=== PATIENT | male | born 1930 | race Caucasian/White ===

== ENCOUNTER 2017-12-18 20:38 | Inpatient (IN) | payer OTHER ==
[~2017-12-18] VITALS: Ht 170.2 cm; Wt 158.5 kg
[~2017-12-18 20:38] MED LIST: AMLODIPINE BESYL5 M1 PO; APPLE CIDER VI1 EACH PO; APPLE CIDER VI500 MG PO; ATORVASTATIN CA10 M1 PO; BIOTIN5 M1 PO; CO Q-1050 M1 PO; DAILY VALUE1 EACH PO; FINASTERIDE5 M1 PO; MAGNESIUM400 M1 PO; NONI PO; PAZEO2.5 ML OP; POTASSIUM GLUC500 M1 PO; PRIMIDONE50 M1 PO; PROPRANOLOL HCL80 M2; SUPER BETA PROSTATE PO; TAMSULOSIN HCL0.4 M1 PO; TART CHERRY CA1 EACH PO; VITAMIN B COMP1 EACH PO; VITAMIN B-121000 MC3 PO; VITAMIN C500 M6 PO
--- NOTE | 2017-12-18 20:58 | ED MVC/FALL/TRAUMA COMPLAINT ---
History of Present Illness General Chief Complaint: Fall Stated Complaint: S/P FALL IN BATHROOM, LEGS GAVE OUT Source: patient, EMS Exam Limitations: no limitations Vital Signs & Intake/Output Vital Signs & Intake/Output Vital Signs Date Time Temp Pulse Resp B/P B/P Pulse O2 O2 Flow FiO2 Mean Ox Delivery Rate 12/19 0031 98.9 87 20 148/65 97 Nasal 2.0L Cannula 12/19 0004 89 Room Air 12/185 95 Nasal 2.0L Cannula 12/180 98.0 90 20 149/80 90 Room Air 12/18 2048 98.1 90 18 146/64 91 Room Air ED Intake and Output 12/19 0000 12/18 1200 Intake Total Output Total Balance Patient 375 lb Weight Weight Estimated Measurement Method Allergies Coded Allergies: doxazosin (From CARDURA) (RASH, PAIN 04/26/16) Reconcile Medications Amlodipine Besylate 5 MG TABLET 1 TAB PO DAILY BP (Reported) Ascorbate Calcium (Vitamin C) (Unknown Strength) TABLET (Unknown Dose) PO DAILY SUPPLEMENT (Reported) Atorvastatin Calcium 10 MG TABLET 1 TAB PO DAILY CHOLESTEROL (Reported) Biotin (Unknown Strength) CAPSULE (Unknown Dose) PO DAILY SUPPLEMENT ( Reported) C/Sourcherry/Celery/Grape Seed (Tart [place] Capsule) 1 EACH CAPSULE 1 CAP PO DAILY SUPPLEMENT (Reported) Chrm/Cider/Dr Bt-Org Peel/Gr T (Apple Cider Vinegar Plus Tb) 1 EACH TABLET 1 TAB PO DAILY SUPPLEMENT (Reported) Cider Vinegar (Apple Cider Vinegar) (Unknown Strength) TABLET (Unknown Dose) PO DAILY SUPPLEMENT (Reported) Cyanocobalamin (Vitamin B-12) (Unknown Strength) TABLET (Unknown Dose) PO DAILY SUPPLEMENT (Reported) Finasteride 5 MG TABLET 1 TAB PO DAILY PROSTATE (Reported) Magnesium Oxide (Magnesium) (Unknown Strength) CAPSULE (Unknown Dose) PO DAILY SUPPLEMENT (Reported) Multivitamin (Multi-Day Vitamins) 1 EACH TABLET 1 TAB PO DAILY SUPPLEMENT ( Reported) [ARTHUR] 1 CAP PO DAILY SUPPLEMENT (Reported) Olopatadine HCl (Pazeo) 2.5 ML DROPS 1 DROP OP DAILY BOTH EYES (Reported) Potassium Gluconate (Potassium) (Unknown Strength) TABLET (Unknown Dose) PO DAILY SUPPLEMENT (Reported) Primidone 50 MG TABLET 0.5 TAB PO DAILY TREMORS (Reported) Propranolol HCl (Propranolol HCl ER) (Unknown Strength) CAP.SA.24H (Unknown Dose) UNKNOWN (Reported) [SUPER BETA PROSTATE] 3 CAP PO DAILY SUPPLEMENT (Reported) Tamsulosin HCl 0.4 MG CAP.ER.24H 1 CAP PO DAILY PROSTATE (Reported) Ubidecarenone (Co Q-10) 50 MG CAPSULE 2 CAP PO DAILY SUPPLEMENT (Reported) Vitamin B Complex 1 EACH CAPSULE 1 CAP PO DAILY SUPPLEMENT (Reported) Triage Note: RECEIVED 87 YO MALE DEMETRA FROM HOME S/P FALL IN BATHROOM. ACCORDING TO REPORT, PT WAS IN THE BATHROOM AND LEFT LEG GAVE OUT, CAUSING HIM TO FALL ON HIS BUTT. PT DENIES ACUTE PAIN OR INJURY. TEMP IN AMBULANCE 100.4, TEMP IN TRIAGE 98.1. Triage Nurses Notes Reviewed? yes Onset: Gradual Duration: day(s): Timing: recent history Severity: mild Injuries/Fall Location: "My bottom hurts" Method of Injury: fall Loss of Consciousness: no loss of consciousness Modifying Factors: Improves With: rest. Associated Symptoms: "I'm just weak all over" HPI: 87 yo gentleman presents after a fall in his bathroom. He shares that he was walking to the bathroom and fell. He landed on his "back end". He may have hit his head. He notes no pain. He fell yesterday and notes that he feels unsteady. Per the family, he has been hallucinating. Past History Travel History Traveled to [place] past 21 day No Medical History Any Pertinent Medical History? see below for history Neurological: NONE EENT: NONE Cardiovascular: PVD, HIGH CHOLESTEROL Respiratory: NONE Gastrointestinal: NONE Hepatic: NONE Renal: NONE, benign prost hyperplasia Musculoskeletal: NONE Psychiatric: NONE Endocrine: NONE Blood Disorders: NONE Cancer(s): NONE TEST DIRECTOR/Reproductive: NONE Surgical History Surgical History: B/L knee replacement Psychosocial History Who do you live with Spouse What is your primary language Georgian Tobacco Use: Quit >30 days ago Family History Hx Contributory? No Review of Systems Review of Systems Constitutional: Reports: no symptoms. Eyes: Reports: no symptoms. Ears, Nose, Throat, Mouth: Reports: no symptoms. Respiratory: Reports: no symptoms. Cardiovascular: Reports: no symptoms. Gastrointestinal/Abdominal: Reports: no symptoms. Genitourinary: Reports: no symptoms. Musculoskeletal: Reports: no symptoms. Skin: Reports: no symptoms. Neurological/Psychological: Reports: no symptoms. All Other Systems: Reviewed and Negative Physical Exam Physical Exam General Appearance: well developed/nourished, mild distress Head: atraumatic, normal appearance Eyes: Bilateral: normal appearance. Ears, Nose, Throat, Mouth: hearing grossly normal, moist mucous membrane Neck: normal inspection, supple, full range of motion Respiratory: normal breath sounds, chest non-tender, no respiratory distress, quiet respiration, lungs clear Cardiovascular: regular rate/rhythm Gastrointestinal: normal bowel sounds, soft, non-tender, obese Back: normal inspection Extremities: chronic venous stasis changes. , 3-4 edema in lower extremities. 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 No CVA/TIA Diagnosis No Sepsis Present: No Sepsis Focused Exam Completed? No Progress Differential Diagnosis: fall, fx, electrolyte abnormality vs other. Plan of Care: Orders Procedure Date/time Status Nothing by Mouth 12/19 B Active Patient Data 12/19 1644 Active Weight 12/19 0329 Active Vital Signs 12/19 032 Active Teach/Educate 12/19 328 Active Pain Treatment and Response 12/19 032 Active Nutritional Intake, Monitor 12/19 032 Active Isolation 12/19 032 Active Intake & Output 12/19 032 Active Patient Care Conference 12/19 0329 Active Activity/Ambulation 12/19 0329 Active Saline Lock 12/19 0235 Active Misc Message 12/19 0235 Active ED Holding Orders 12/19 0235 Active Admit to inpatient 12/19 0235 Active Vital Signs 12/19 0235 Active Code Status 12/19 0235 Active Intake & Output 12/19 0004 Active Add-on Test (ER Only) 12/18 231 Active Add-on Test (ER Only) 12/18 231 Active D-DIMER 12/18 2109 Complete URINALYSIS 12/18 2057 Complete TROPONIN LEVEL 12/18 2057 Complete LIPASE 12/18 2057 Complete HEPATIC FUNCTION PANEL 12/18 2057 Complete CBC WITHOUT DIFFERENTIAL 12/18 2057 Complete BASIC METABOLIC PANEL 12/18 2057 Complete AMYLASE 12/18 2057 Complete EKG 12/18 2057 Active Laboratory Tests 12/18/17 2352: Urine Color YEL, Urine Clarity CLEAR, Urine pH 6.0, Ur Specific [place] 1.025, Urine Protein NEG, Urine Ketones NEG, Urine Nitrite NEG, Urine Bilirubin NEG, Urine Urobilinogen 0.2, Ur Leukocyte Esterase NEG, Ur Microscopic EXAM NOT REQUIRED, Urine Hemoglobin NEG, Urine Glucose NEG 12/18/172112: Anion Gap 7, Estimated GFR > 60, BUN/Creatinine Ratio 23.3, Glucose 134 H, Calcium 10.0, Total Bilirubin 0.7, Direct Bilirubin 0.2, AST 22, ALT 25, Alkaline Phosphatase 66, Troponin I < 0.01, Total Protein 6.5, Albumin 3.4 L, Amylase 75, Lipase 158, CBC w Diff NO MAN DIFF REQ, RBC 4.14 L, MCV 89.3, MCH 28.6, MCHC 32.0 L, RDW 16.7 H, MPV 7.6, Gran % 70.8, Lymphocytes % 14.8 L, Monocytes % 11.7 H, Eosinophils % 2.3, Basophils % 0.4, Absolute Granulocytes 7.6 H, Absolute Lymphocytes 1.6, Absolute Monocytes 1.3 H, Absolute Eosinophils 0.2, Absolute Basophils 0 12/18/172109: D-Dimer High Sensitivty 597 H Diagnostic Imaging: Viewed by Me: CT Scan. Discussed w/RAD: CT Scan. Radiology Impression: PATIENT: DASHA DON PRESENT AGE: 87 PATIENT ACCOUNT NO: [id number] : 32 LOCATION: [facility] ORDERING PHYSICIAN: Allen Mcarthur MD SERVICE DATE: 12/18/17 EXAM TYPE: CAT - CT CERV SPINE WO IV CONTRAST; CT HEAD WO IV CONTRAST EXAMINATIONS: CT HEAD WITHOUT CONTRAST AND CT CERVICAL SPINE WITHOUT CONTRAST CLINICAL INFORMATION: Trauma, fall COMPARISON: None. TECHNIQUE: Contiguous helical images of the brain were obtained without IV contrast. Contiguous helical images of the cervical spine were obtained without IV contrast. Multiplanar reconstructions were performed. DLP: 1300 mGy-cm FINDINGS: Study is limited by patient motion. Repeat scans obtained. Evaluation of the inferior cranium is specifically very limited. There are no pathologic extra-axial fluid collections. The lateral, third, fourth ventricles are nondilated and concordant with the appearance of the sulci. There is no evidence for acute intraparenchymal hemorrhage or infarct within the visualized cranium. The cerebellar fossa and temporal lobes are not well evaluated secondary to significant patient motion. There is neither mass nor mass effect within the visualized tissues. There is no shift of midline structures. The paranasal sinuses and mastoid air cells are clear. There are no osseous lesions. There is no prevertebral soft tissue swelling. The intervertebral disc spaces of C2-C5 are maintained. There is mild retrolisthesis at the C4-C5 level measuring 1 mm. There is moderate loss of the normal intervertebral disc space at the C5-C6 level with prominent anterior osteophytes. Similar findings are identified at the C6-C7 level. In addition, there is anterolisthesis at this level measuring 3 mm. Diffuse facet arthropathy. Normal thyroid gland. The visualized lung apices are clear. IMPRESSION: 1. Nonvisualization of the posterior fossa and temporal lobes secondary to significant patient motion. Acute findings in this location cannot be excluded. 2. Within the visualized cranium, no acute intracranial hemorrhage. 3. No acute fracture of the cervical spine. 4. Moderately severe degenerative changes involving the C5-C7 levels. The adjacent and associated spondylolisthesis most likely relates to degenerative change as opposed to acute subluxation. DICTATED BY: Lo Worthy MD DATE/TIME DICTATED:12/18/172208 OPTICAL STORE MANAGER:JIMBO DATE/TIME TRANSCRIBED:12/18/172208 CONFIDENTIAL, DO NOT COPY WITHOUT APPROPRIATE AUTHORIZATION. <Electronically signed in Other Vendor System> SIGNED BY: Lo Worthy MD 12/18/172221, PATIENT: DASHA DON PRESENT AGE: 87 PATIENT ACCOUNT NO: [id number] : 32 LOCATION: [facility] ORDERING PHYSICIAN: Allen Mcarthur MD SERVICE DATE: 12/18/17 EXAM TYPE: CAT - CT ABD & PELVIS W/O IV CONTRAS; CT CHEST WO IV CONTRAST EXAMINATION: CT CHEST, ABDOMEN AND PELVIS WITHOUT CONTRAST CLINICAL INFORMATION: Pain following trauma. Fall. COMPARISON: 04/26/2016. TECHNIQUE: Contiguous axial thin section helical images of the chest, abdomen and pelvis were performed without oral or IV contrast. The data set was reformatted in the coronal and sagittal planes and reviewed on an independent workstation. DLP: 2011 mGy-cm. FINDINGS: The heart is of normal size. There is no pericardial effusion. There is neither mediastinal, hilar nor axillary lymphadenopathy. There are no chest wall masses. Review of lung windows demonstrates that there are neither pleural effusions nor pneumothoraces. There are no consolidations. There is dependent atelectasis. There is a 7 mm nodular density within the right upper lobe on image 206/1088. This was not identified on the prior exam. The liver is of normal size and attenuation without focal lesions nor intrahepatic biliary ductal dilation. There is layering high attenuation within the gallbladder lumen. There is no wall thickening or discernible pericholecystic fluid. The spleen, pancreas, adrenal glands are unremarkable. Both kidneys are of normal size and attenuation without hydronephrosis or nephrolithiasis. There is an 8.2 cm exophytic cyst emanating from the upper pole of the left kidney. There is no abdominal free fluid. There is neither mesenteric nor retroperitoneal lymphadenopathy. There is sigmoid diverticulosis without evidence of diverticulitis; otherwise, unremarkable unopacified loops of small and large bowel are identified. There is no pelvic free fluid. The urinary bladder is unremarkable. There is neither pelvic nor inguinal lymphadenopathy. Bone windows: Neither sclerotic nor lytic bone lesions are identified. IMPRESSION: No evidence for acute traumatic injury to the thorax , abdomen or pelvis. No evidence for acute abdominal or pelvic inflammatory or infectious processes. Sigmoid diverticulosis without evidence of diverticulitis. Layering high attenuation within the gallbladder lumen, either b2b outside sales representative of high density bile or numerous calculi. No CT evidence for cholecystitis. 7 mm right upper lobe nodular density. Various management parameters for solitary pulmonary nodules are in the literature. According to the Fleischner Society, recommendations for pulmonary nodules are as follows: Nodule size < or = to 4 mm in LOW RISK PATIENTS: No follow up needed. Nodule size < or = to 4 mm in HIGH RISK PATIENTS: Follow up CT at 12 months; if unchanged, no further follow up. Nodule size > 4-6 mm in LOW RISK PATIENTS: Follow up CT at 12 months; if unchanged, no further follow up. Nodule size > 4-6 mm in HIGH RISK PATIENTS: Initial follow up CT at 6-12 months, then at 18-24 months if no change. Nodule size > 6-8 mm in LOW RISK PATIENTS: Initial follow up CT at 6-12 months, then at 18-24 months if no change. Nodule size > 6-8 mm in HIGH RISK PATIENTS: Initial follow up CT at 3-6 months, then 9-12 months and 24 months if no change. Nodule size > 8 mm in LOW RISK PATIENTS: Follow up CT at around 3, 9, and 24 months, dynamic contrast-enhanced CT, PET, and/or biopsy. Nodule size > 8 mm in HIGH RISK PATIENTS: Same as for low-risk patients. DICTATED BY: Kadeem Garcia MD DATE/TIME DICTATED:12/18/172216 OPTICAL STORE MANAGER:JIMBO DATE/TIME TRANSCRIBED:12/18/172216 CONFIDENTIAL, DO NOT COPY WITHOUT APPROPRIATE AUTHORIZATION. <Electronically signed in Other Vendor System> SIGNED BY: Kadeem Garcia MD 12/18/172228, PATIENT: DASHA DON PRESENT AGE: 87 PATIENT ACCOUNT NO: [id number] : 32 LOCATION: [facility] ORDERING PHYSICIAN: Allen Mcarthur MD SERVICE DATE: 12/18/17 EXAM TYPE: CAT - CTA CHEST-PULMONARY EMBOLISM EXAMINATION: CT ANGIOGRAM OF THE CHEST WITH AND WITHOUT CONTRAST (CT PULMONARY ANGIOGRAM FOR PE) CLINICAL INFORMATION: Dx: dyspnea, hypoxia COMPARISON: CT chest December 18, 2017. CTA chest April 26, 2016. TECHNIQUE: Prior to contrast administration, noncontrast localization images were obtained. Subsequently, multidetector volumetric imaging was performed from the thoracic inlet to below the diaphragms following the administration of 76 mL Optiray 320 intravenous contrast. No contrast reaction reported. Sagittal, coronal, and MIP oblique sagittal reformatted images were obtained on the CT workstation, uploaded to PACS, and reviewed. Total exam dose-length product 534.22 mGy-cm. FINDINGS: QUALITY OF STUDY/ CONTRAST BOLUS: Satisfactory PULMONARY ARTERIES: No central or segmental pulmonary emboli. THORACIC AORTA: No aneurysm or dissection. There are vascular wall calcifications of aortic arch. LUNG: No infiltrate. No acute change. The previously noted 7 mm nodule in the right lung is stable. PLEURA: There is no pleural effusion. There is no pneumothorax. Small pleural calcifications and nodular thickening along the right lateral chest wall stable. Stable focal nodular thickening of the major fissure in the left lung. MEDIASTINUM: Normal heart size. No pericardial effusion. No hilar or mediastinal lymphadenopathy. No evidence of septal bowing or right heart strain. CHEST WALL/AXILLA: No axillary or internal mammary lymphadenopathy. OSSEOUS STRUCTURES: Degenerative spondylosis of the dorsal spine with multilevel disc height narrowing and endplate spurring of the vertebrae. UPPER ABDOMEN: There are bilateral cysts at the upper pole of the kidneys. The left kidney has an 8 cm cyst. No reflux of contrast into the hepatic veins to suggest elevated right heart pressures. IMPRESSION: No acute abnormality the chest. No evidence of pulmonary embolism. VTE: negative DICTATED BY: Chase Schmitt MD DATE/TIME DICTATED:12/19/17103 OPTICAL STORE MANAGER:JIMBO DATE/TIME TRANSCRIBED:12/19/17103 CONFIDENTIAL, DO NOT COPY WITHOUT APPROPRIATE AUTHORIZATION. <Electronically signed in Other Vendor System> SIGNED BY: Chase Schmitt MD 12/19/17111 Initial ED EKG: normal axis, normal intervals, normal p-waves, normal QRS complex, normal sinus rhythm Departure Departure Disposition: STILL A PATIENT Condition: Stable Clinical Impression Primary Impression: Hypoxia Referrals: Kenny LAWSON,Steve Jimenez (PCP/Family) Departure Forms: Customer Survey General Discharge Information Comments 12/19/17, 2:25am... discussed with case management... pt may be admitted for evaluation of his hypoxia.
[2017-12-18 21:30] LABS: ABSOLUTE BASOPHIL COUNT 0 /CUMM (0.0-0.2); ABSOLUTE EOSINOPHIL COUNT 0.2 /CUMM (0.0-0.7); ABSOLUTE GRANULOCYTE CT 7.6 /CUMM (1.4-6.5); ABSOLUTE LYMPH COUNT 1.6 /CUMM (1.2-3.4); ABSOLUTE MONOCYTE COUNT 1.3 /CUMM (0.10-0.60); BASOPHIL % 0.4 % (0.0-2.0); EOSINOPHIL % 2.3 % (0-5); GRANULOCYTE % 70.8 % (42.2-75.2); HEMATOCRIT 36.9 % (42-52); MEAN CORPUSCULAR HGB 28.6 PG (27.0-31.0); MEAN CORPUSCULAR VOLUME 89.3 FL (80.0-94.0); MEAN PLATELET VOLUME 7.6 FL (7.4-10.4); PLATELET COUNT 391 /CUMM (130-400); RBC DISTRIBUTION WIDTH 16.7 % (11.5-14.5); RED BLOOD CELL CT 4.14 /CUMM (4.70-6.10); WHITE BLOOD CELL COUNT 10.7 /CUMM (4.8-10.8)
--- NOTE | 2017-12-18 22:22 | CT SCAN REPORT ---
EXAMINATIONS: CT HEAD WITHOUT CONTRAST AND CT CERVICAL SPINE WITHOUT CONTRAST CLINICAL INFORMATION: Trauma, fall COMPARISON: None. TECHNIQUE: Contiguous helical images of the brain were obtained without IV contrast. Contiguous helical images of the cervical spine were obtained without IV contrast. Multiplanar reconstructions were performed. DLP: 1300 mGy-cm FINDINGS: Study is limited by patient motion. Repeat scans obtained. Evaluation of the inferior cranium is specifically very limited. There are no pathologic extra-axial fluid collections. The lateral, third, fourth ventricles are nondilated and concordant with the appearance of the sulci. There is no evidence for acute intraparenchymal hemorrhage or infarct within the visualized cranium. The cerebellar fossa and temporal lobes are not well evaluated secondary to significant patient motion. There is neither mass nor mass effect within the visualized tissues. There is no shift of midline structures. The paranasal sinuses and mastoid air cells are clear. There are no osseous lesions. There is no prevertebral soft tissue swelling. The intervertebral disc spaces of C2-C5 are maintained. There is mild retrolisthesis at the C4-C5 level measuring 1 mm. There is moderate loss of the normal intervertebral disc space at the C5-C6 level with prominent anterior osteophytes. Similar findings are identified at the C6-C7 level. In addition, there is anterolisthesis at this level measuring 3 mm. Diffuse facet arthropathy. Normal thyroid gland. The visualized lung apices are clear. IMPRESSION: 1. Nonvisualization of the posterior fossa and temporal lobes secondary to significant patient motion. Acute findings in this location cannot be excluded. 2. Within the visualized cranium, no acute intracranial hemorrhage. 3. No acute fracture of the cervical spine. 4. Moderately severe degenerative changes involving the C5-C7 levels. The adjacent and associated spondylolisthesis most likely relates to degenerative change as opposed to acute subluxation.
--- NOTE | 2017-12-18 22:29 | CT SCAN REPORT ---
EXAMINATION: CT CHEST, ABDOMEN AND PELVIS WITHOUT CONTRAST CLINICAL INFORMATION: Pain following trauma. Fall. COMPARISON: 04/26/2016. TECHNIQUE: Contiguous axial thin section helical images of the chest, abdomen and pelvis were performed without oral or IV contrast. The data set was reformatted in the coronal and sagittal planes and reviewed on an independent workstation. DLP: 2011 mGy-cm. FINDINGS: The heart is of normal size. There is no pericardial effusion. There is neither mediastinal, hilar nor axillary lymphadenopathy. There are no chest wall masses. Review of lung windows demonstrates that there are neither pleural effusions nor pneumothoraces. There are no consolidations. There is dependent atelectasis. There is a 7 mm nodular density within the right upper lobe on image 206/1088. This was not identified on the prior exam. The liver is of normal size and attenuation without focal lesions nor intrahepatic biliary ductal dilation. There is layering high attenuation within the gallbladder lumen. There is no wall thickening or discernible pericholecystic fluid. The spleen, pancreas, adrenal glands are unremarkable. Both kidneys are of normal size and attenuation without hydronephrosis or nephrolithiasis. There is an 8.2 cm exophytic cyst emanating from the upper pole of the left kidney. There is no abdominal free fluid. There is neither mesenteric nor retroperitoneal lymphadenopathy. There is sigmoid diverticulosis without evidence of diverticulitis; otherwise, unremarkable unopacified loops of small and large bowel are identified. There is no pelvic free fluid. The urinary bladder is unremarkable. There is neither pelvic nor inguinal lymphadenopathy. Bone windows: Neither sclerotic nor lytic bone lesions are identified. IMPRESSION: No evidence for acute traumatic injury to the thorax, abdomen or pelvis. No evidence for acute abdominal or pelvic inflammatory or infectious processes. Sigmoid diverticulosis without evidence of diverticulitis. Layering high attenuation within the gallbladder lumen, either advertising account representative of high density bile or numerous calculi. No CT evidence for cholecystitis. 7 mm right upper lobe nodular density. Various management parameters for solitary pulmonary nodules are in the literature. According to the Fleischner Society, recommendations for pulmonary nodules are as follows: Nodule size < or = to 4 mm in LOW RISK PATIENTS: No follow up needed. Nodule size < or = to 4 mm in HIGH RISK PATIENTS: Follow up CT at 12 months; if unchanged, no further follow up. Nodule size > 4-6 mm in LOW RISK PATIENTS: Follow up CT at 12 months; if unchanged, no further follow up. Nodule size > 4-6 mm in HIGH RISK PATIENTS: Initial follow up CT at 6-12 months, then at 18-24 months if no change. Nodule size > 6-8 mm in LOW RISK PATIENTS: Initial follow up CT at 6-12 months, then at 18-24 months if no change. Nodule size > 6-8 mm in HIGH RISK PATIENTS: Initial follow up CT at 3-6 months, then 9-12 months and 24 months if no change. Nodule size > 8 mm in LOW RISK PATIENTS: Follow up CT at around 3, 9, and 24 months, dynamic contrast-enhanced CT, PET, and/or biopsy. Nodule size > 8 mm in HIGH RISK PATIENTS: Same as for low-risk patients.
--- NOTE | 2017-12-19 01:12 | CT SCAN REPORT ---
EXAMINATION: CT ANGIOGRAM OF THE CHEST WITH AND WITHOUT CONTRAST (CT PULMONARY ANGIOGRAM FOR PE) CLINICAL INFORMATION: Dx: dyspnea, hypoxia COMPARISON: CT chest December 18, 2017. CTA chest April 26, 2016. TECHNIQUE: Prior to contrast administration, noncontrast localization images were obtained. Subsequently, multidetector volumetric imaging was performed from the thoracic inlet to below the diaphragms following the administration of 76 mL Optiray 320 intravenous contrast. No contrast reaction reported. Sagittal, coronal, and MIP oblique sagittal reformatted images were obtained on the CT workstation, uploaded to PACS, and reviewed. Total exam dose-length product 534.22 mGy-cm. FINDINGS: QUALITY OF STUDY/CONTRAST BOLUS: Satisfactory PULMONARY ARTERIES: No central or segmental pulmonary emboli. THORACIC AORTA: No aneurysm or dissection. There are vascular wall calcifications of aortic arch. LUNG: No infiltrate. No acute change. The previously noted 7 mm nodule in the right lung is stable. PLEURA: There is no pleural effusion. There is no pneumothorax. Small pleural calcifications and nodular thickening along the right lateral chest wall stable. Stable focal nodular thickening of the major fissure in the left lung. MEDIASTINUM: Normal heart size. No pericardial effusion. No hilar or mediastinal lymphadenopathy. No evidence of septal bowing or right heart strain. CHEST WALL/AXILLA: No axillary or internal mammary lymphadenopathy. OSSEOUS STRUCTURES: Degenerative spondylosis of the dorsal spine with multilevel disc height narrowing and endplate spurring of the vertebrae. UPPER ABDOMEN: There are bilateral cysts at the upper pole of the kidneys. The left kidney has an 8 cm cyst. No reflux of contrast into the hepatic veins to suggest elevated right heart pressures. IMPRESSION: No acute abnormality the chest. No evidence of pulmonary embolism. VTE: negative
--- NOTE | 2017-12-19 03:04 | History & Physical ---
Alfonso Styles MD,[facility] 12/19/17 0252: General Information and HPI MD Statement: I have seen and personally examined DASHA WARD and documented this H&P. The patient is a 87 year old M who presented with a patient stated chief complaint of [fall]. Source of Information: patient, old records Exam Limitations: no limitations History of Present Illness: Patient is 87-year-old male with PMH of HTN, HLP, ?BPH, morbid obesity, PVD, bilateral knee replacement was BIBA to ED after a fall. Interview with patient was done to complete history. Patient reported that in the last month, he was following more frequently as he did (3 times in the last month). He reported that yesterday he was walking to the bathroom when he slided backward to the ground. He couldn't remember hitting his head, but denied any loss of consciousness, dizziness, chest pain, lightheadedness, change in vision before the event. He endorsed that his left knee is giving way more are recently. He also reported another event of falling last Tuesday with very similar scenario which involved hit to the head. He reported cough and phlem for the last month, but denied any URTI, fever or chills. He also denied any history of asthma, COPD, using inhalers or O2 supplements. He also reported exertional shortness of breathing during last week. He follows several doctors for minor problems, he last visited Dr. Munoz one months ago without significant findings Allergies/Medications Allergies: Coded Allergies: doxazosin (From CARDURA) (RASH, PAIN 04/26/16) Home Med list Amlodipine Besylate 5 MG TABLET 1 TAB PO DAILY BP (Reported) Ascorbate Calcium (Vitamin C) (Unknown Strength) TABLET (Unknown Dose) PO DAILY SUPPLEMENT (Reported) Atorvastatin Calcium 10 MG TABLET 1 TAB PO DAILY CHOLESTEROL (Reported) Biotin (Unknown Strength) CAPSULE (Unknown Dose) PO DAILY SUPPLEMENT ( Reported) C/Sourcherry/Celery/Grape Seed (Tart [place]ell Capsule) 1 EACH CAPSULE 1 CAP PO DAILY SUPPLEMENT (Reported) Rivera/Nuria/ Bt-Org Peel/Gr T (Apple Cider Vinegar Plus Tb) 1 EACH TABLET 1 TAB PO DAILY SUPPLEMENT (Reported) Cider Vinegar (Apple Cider Vinegar) (Unknown Strength) TABLET (Unknown Dose) PO DAILY SUPPLEMENT (Reported) Cyanocobalamin (Vitamin B-12) (Unknown Strength) TABLET (Unknown Dose) PO DAILY SUPPLEMENT (Reported) Finasteride 5 MG TABLET 1 TAB PO DAILY PROSTATE (Reported) Magnesium Oxide (Magnesium) (Unknown Strength) CAPSULE (Unknown Dose) PO DAILY SUPPLEMENT (Reported) Multivitamin (Multi-Day Vitamins) 1 EACH TABLET 1 TAB PO DAILY SUPPLEMENT ( Reported) [ARTHUR] 1 CAP PO DAILY SUPPLEMENT (Reported) Olopatadine HCl (Pazeo) 2.5 ML DROPS 1 DROP OP DAILY BOTH EYES (Reported) Potassium Gluconate (Potassium) (Unknown Strength) TABLET (Unknown Dose) PO DAILY SUPPLEMENT (Reported) Primidone 50 MG TABLET 0.5 TAB PO DAILY TREMORS (Reported) Propranolol HCl (Propranolol HCl ER) (Unknown Strength) CAP.SA.24H (Unknown Dose) UNKNOWN (Reported) [SUPER BETA PROSTATE] 3 CAP PO DAILY SUPPLEMENT (Reported) Tamsulosin HCl 0.4 MG CAP.ER.24H 1 CAP PO DAILY PROSTATE (Reported) Ubidecarenone (Co Q-10) 50 MG CAPSULE 2 CAP PO DAILY SUPPLEMENT (Reported) Vitamin B Complex 1 EACH CAPSULE 1 CAP PO DAILY SUPPLEMENT (Reported) Past History Travel History Traveled to [place] past 21 day No Medical History Neurological: NONE EENT: NONE Cardiovascular: PVD, HIGH CHOLESTEROL Respiratory: NONE Gastrointestinal: NONE Hepatic: NONE Renal: NONE, benign prost hyperplasia Musculoskeletal: NONE Psychiatric: NONE Endocrine: NONE Blood Disorders: NONE Cancer(s): NONE 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 Exam & Diagnostic Data Last 24 Hrs of Vital Signs/I&O Vital Signs Date Time Temp Pulse Resp B/P B/P Pulse O2 O2 Flow FiO2 Mean Ox Delivery Rate 12/19 0031 98.9 87 20 148/65 97 Nasal 2.0L Cannula 12/19 0004 89 Room Air 12/185 95 Nasal 2.0L Cannula 12/180 98.0 90 20 149/80 90 Room Air 12/18 2048 98.1 90 18 146/64 91 Room Air Intake & Output 12/19 0800 12/19 0000 12/18 1600 Intake Total Output Total Balance Patient 375 lb Weight Weight Estimated Measurement Method Physical Exam General Appearance Alert, Oriented X3, Cooperative, No Acute Distress, morbede obese Skin bilateral LE chronic skin changes, nodular lesion/skin lesion over right leg with minimal discharge Skin erythema, foul smelling in the groins Skin Temp/Moisture Exam: Warm/Dry Sepsis Skin Exam (color): Normal for Ethnicity HEENT Atraumatic, EOMI, Mucous Membr. moist/pink Cardiovascular Normal S1, Normal S2 Lungs decreased breathing sounds Abdomen obsese Neurological Normal Speech, Cranial Nerves 3-12 NL, LE, 4-5/5 Extremities as noted above, chronic skin changes Last 24 Hrs of Labs/Vicente: Laboratory Tests 12/18/172351: Urine Color YEL, Urine Clarity CLEAR, Urine pH 6.0, Ur Specific [place] 1.025, Urine Protein NEG, Urine Ketones NEG, Urine Nitrite NEG, Urine Bilirubin NEG, Urine Urobilinogen 0.2, Ur Leukocyte Esterase NEG, Ur Microscopic EXAM NOT REQUIRED, Urine Hemoglobin NEG, Urine Glucose NEG 12/18/172112: Anion Gap 7, Estimated GFR > 60, BUN/Creatinine Ratio 23.3, Glucose 134 H, Calcium 10.0, Total Bilirubin 0.7, Direct Bilirubin 0.2, AST 22, ALT 25, Alkaline Phosphatase 66, Troponin I < 0.01, Total Protein 6.5, Albumin 3.4 L, Amylase 75, Lipase 158, CBC w Diff NO MAN DIFF REQ, RBC 4.14 L, MCV 89.3, MCH 28.6, MCHC 32.0 L, RDW 16.7 H, MPV 7.6, Gran % 70.8, Lymphocytes % 14.8 L, Monocytes % 11.7 H, Eosinophils % 2.3, Basophils % 0.4, Absolute Granulocytes 7.6 H, Absolute Lymphocytes 1.6, Absolute Monocytes 1.3 H, Absolute Eosinophils 0.2, Absolute Basophils 0 12/18/172109: D-Dimer High Sensitivty 597 H Assessment/Plan Assessment: Patient is 87-year-old male presented after fall reported cough, phlem knee giving out more often PMH of HTN, HLP, ?BPH, morbid obesity, PVD, bilateral knee replacement VS, Ph Ex at admission: No fever ( 100.4 in ambulance), BP 146/64, RR 18, DE 90, saturation 89% in room air Labs at admission: WBC 10.7, Hgb 11.8 BEP: Bicarbonate 34, others insignificant D-dimer 597 UA: Negative Imagings at admission: Head, neck CT: 1. Nonvisualization of the posterior fossa and temporal lobes secondary to significant patient motion. Acute findings in this location cannot be excluded. 2. Within the visualized cranium, no acute intracranial hemorrhage. 3. No acute fracture of the cervical spine. 4. Moderately severe degenerative changes involving the C5-C7 levels. The adjacent and associated spondylolisthesis most likely relates to degenerative change as opposed to acute subluxation. Chest/abd CT: No evidence for acute traumatic injury to the thorax, abdomen or pelvis. No evidence for acute abdominal or pelvic inflammatory or infectious processes. Sigmoid diverticulosis without evidence of diverticulitis. Layering high attenuation within the gallbladder lumen, either insurance representative of high density bile or numerous calculi. No CT evidence for cholecystitis. 7 mm right upper lobe nodular density. Chest CTA: No acute abnormality the chest. No evidence of pulmonary embolism. Patient was admitted to floor for management of following conditions: Acute on ?chronic hypoxic respiratory failure Obesity physical weakness - admit patient to general medicine floor - Vital signs - O2 supplements as needed - continue home medication - nystatin powder for skin lesions - PT consult - TRC nebs Heart healthy diet DVT Ppx: ALPS FC As Ranked By This Provider Problem List: 1. Hypoxia Core Measures/Misc (04/17) Acute Coronary Syndrome ACS Diagnosis: No Congestive Heart Failure Congestive Heart Failure Diagnosis No Cerebrovascular Accident CVA/TIA Diagnosis: No VTE (View Protocol) VTE Risk Factors Age>40 No Mechanical VTE Prophylaxis d/t N/A MechProphylax Ordered No VTE Pharm Prophylaxis d/t NA PharmProphylax ordered Sepsis (View protocol) Sepsis Present: No Rupert LAWSON,[facility] 12/19/17 0452: Resident Review Statement Resident Statement: examined this patient, discussed with collector of internal revenue, agreed with collector of internal revenue, discussed with family, discussed with nursing Other Findings: Mr. Ward is 87-year-old male with past medical history significant for morbid obesity, hypertension, hyperlipidemia, osteoarthritis, BPH who BIBA after a fall. Patient had a fall on his way to bathroom yesterday evening, reported the fall is because his "slippry socks", he fell backward, denied any dizziness, blurry vision, chest pain, palpitation, loss of consciousness, hitting his head, incontinence, weakness or numbness. Patient had another fall on Tuesday again because of the "slippery socks" but that time he hit his head however denied loss of consciousness, ambulance was called to help pick him up from the floor. Patient reported total of 3 falls in. Of 1 months, 2 of them were backward falls. He reported a productive cough for 1 month, dyspnea on exertion for 1 week after he exhausted himself pushing some boxes. Patient reported being independent at baseline, uses a walker to ambulate around. Patient denied any recent hospitalization, last hospitalization was years ago for knee replacement. He follow Dr. Munoz for hypertension, urologist for BPH and primary care physician. Patient denied any fever, chills, night sweats. Patient has history of smoking 74 PPD, quit 35 years ago, never diagnosed with COPD, never was asked to have oxygen supplementation, never saw a leadership recruiter. On admission vital signs 98.1, pulse 90, blood pressure 146/64, respiratory rate 18 saturating 91% on room air, desat to 89% on room air and placed on 2 L nasal cannula Problem list #Frequent falls #Pickwickian syndrome #Morbid obesity #Hypertension, hyperlipidemia #Multiple lung nodules Plan Admit to general medical floor Vitals every shift Orthostatic measurement FALL precaution Titrate oxygen to keep it above 90% saturation Repeat CBC and PEB in a.m. Add on vitamin D, B12 Case management consultation PT evaluation and treatment Continue home medication Please confirm medication list with his MiraLAX for constipation as needed Weight loss consultation Out patient eval of lung nodules Diet heart healthy DVT prophylaxis Lovenox Code full Stef Barragan 12/19/17 0531: Attending MD Review Statement Attending Statement Attending MD Statement: examined this patient, discuss w/resident/PA/SHOW HOST/HOSTESS, agreed w/resident/PA/SHOW HOST/HOSTESS, reviewed EMR data (avail), reviewed images, amended to note Attending Assessment/Plan: CC: Fall PMH: HTN, HLD, morbid obesity, peripheral vascular disease with chronic lymphedema, bilateral knee replacement, BPH, ex-smoker Patient was brought in ER after mechanical fall. He states that in last 1 month he fell 3 times. Today he was walking to the bathroom, he had new terri and slippery socks. At the same time he also felt that his left leg was giving out and he fell down backwards, did not hit his head, no loss of consciousness, dizziness or chest pain before or after episode. Patient states that his nose feels stuffy but denies any fever, chills. He has been having chronic cough with phlegm production since last 1 month for which he did not seek any medical attention. Vitals: Temperature 98.1, pulse 90, RR 18, blood pressure 146/64, saturating 91% on room air, and then he desaturated to 89% on room air, started on 2 L nasal cannula saturating well at 97%. On exam: A O 3, cooperative, no acute distress, neck supple, JVD normal, no lymphadenopathy, mucosa moist, chronic venous stasis skin changes, no obvious skin rashes or inflammation CVS: S1-S2, RRR. RS: Clear to auscultate bilaterally. Abdomen: Obese, chronic skin changes, fungal infection and panniculitis in bilateral inguinal folds with superficial multiple small skin breakdowns. CT abdomen and pelvis, Chest without contrast: 1. No evidence for acute traumatic injury to the thorax, abdomen or pelvis. 2. No evidence for acute abdominal or pelvic inflammatory or infectious processes. 3. Sigmoid diverticulosis without evidence of diverticulitis. 4. Layering high attenuation within the gallbladder lumen, either insurance representative of high density bile or numerous calculi. No CT evidence for cholecystitis. 5. 7 mm right upper lobe nodular density. CT head and cervical spine without IV contrast: 1. Nonvisualization of the posterior fossa and temporal lobes secondary to significant patient motion. Acute findings in this location cannot be excluded. 2. Within the visualized cranium, no acute intracranial hemorrhage. 3. No acute fracture of the cervical spine. 4. Moderately severe degenerative changes involving the C5-C7 levels. The adjacent and associated spondylolisthesis most likely relates to degenerative change as opposed to acute subluxation. CTA chest: No acute abnormality the chest. No evidence of pulmonary embolism. Assessment and plan 87-year-old male with multiple comorbidities and morbid obesity presented in ER after mechanical fall. The fall was combination of sepsis factors, he has recently changed his terri, he had slippery socks and then he feels that his left leg gives out. He has been falling frequently in recent past, fell down 3 times in last 1 month. Today he fell backwards without hitting his head, no loss of consciousness or any prodromal symptoms. Examination was unremarkable in ER except morbid obesity, fungal infection and panniculitis in bilateral inguinal folds with superficial multiple small skin breakdowns and bilateral lower extremity chronic venous stasis changes. He was found to be hypoxic requiring 2 L nasal cannula to saturate at 97%. That was the main concern for admission. He may be having obesity hypoventilation syndrome given that his bicarbonate is 34, appears mildly tachypneic on examination otherwise no wheezing or crackles. Patient sleeps on recliner at home and does not use any CPAP. Will continue incentive spirometry, try to wean off oxygen, obtain OT PT evaluation + Hypoxia unclear etiology probably obesity hypoventilation syndrome, appears chronic + History of HTN, HLD, morbid obesity, peripheral vascular disease with chronic lymphedema, bilateral knee replacement, BPH, ex-smoker - Admit to general medicine - Try to wean off oxygen - Incentive spirometry - OT PT evaluation - Orthostatic vitals in a.m. - Continue all his home medications after confirming with his .
[2017-12-19 05:03] VITALS: BP 136/50
--- NOTE | 2017-12-19 05:33 | Admission Certification ---
Admission Certification Certification Statement - As attending physician, I certify that at the time of - admission, based on clinical presentation, severity of - symptoms, need for further diagnostic testing and - therapeutic interventions, and risk of adverse outcomes - without in-hospital treatment, in my clinical assessment, - this patient requires an acute hospital stay for a minimum - of two nights or longer. I have also considered psychsocial - factors such as support system, advanced age, financial - issues, cognitive issues, and failed out-patient treatments, - past re-admission history, safety of patient, and lack of - compliance as applicable. Specific rationale supporting this admission is: Hypoxia
[2017-12-19 08:20] LABS: ABSOLUTE BASOPHIL COUNT 0 /CUMM (0.0-0.2); ABSOLUTE EOSINOPHIL COUNT 0.3 /CUMM (0.0-0.7); ABSOLUTE GRANULOCYTE CT 6.6 /CUMM (1.4-6.5); ABSOLUTE LYMPH COUNT 1.9 /CUMM (1.2-3.4); ABSOLUTE MONOCYTE COUNT 1.1 /CUMM (0.10-0.60); BASOPHIL % 0.3 % (0.0-2.0); EOSINOPHIL % 2.9 % (0-5); GRANULOCYTE % 65.9 % (42.2-75.2); HEMATOCRIT 34.1 % (42-52); MEAN CORPUSCULAR HGB 28.9 PG (27.0-31.0); MEAN CORPUSCULAR HGB CONC 32.5 G/DL (33.0-37.0); MEAN CORPUSCULAR VOLUME 88.8 FL (80.0-94.0); PLATELET COUNT 332 /CUMM (130-400); RBC DISTRIBUTION WIDTH 16.7 % (11.5-14.5); RED BLOOD CELL CT 3.85 /CUMM (4.70-6.10); WHITE BLOOD CELL COUNT 9.9 /CUMM (4.8-10.8)
[2017-12-19 09:20] VITALS: BP 142/52
--- NOTE | 2017-12-19 12:48 | PN- Att Addend ---
Attending Addendum Attending Brief Note Patient seen and examined, felt tired after he worked with physical therapy. Still requiring oxygen but now down to 1 L. Denies any shortness of breath. Vital Signs Date Time Temp Pulse Resp B/P B/P Pulse O2 O2 Flow FiO2 Mean Ox Delivery Rate 12/19 1223 Nasal 2.0L Cannula 12/19 1145 20 94 Nasal 1.0L Cannula 12/19 1142 20 98 Nasal 2.0L Cannula 12/19 1140 20 90 Room Air 12/19 1139 20 98 Nasal 2.0L Cannula 12/19 0948 60 142/52 12/19 0920 60 142/52 12/19 0800 93 Nasal 2.0L Cannula 12/19 0503 98.7 85 20 136/50 98 Nasal 2.0L Cannula 12/19 0421 98 Nasal 2.0L Cannula 12/19 0031 98.9 87 20 148/65 97 Nasal 2.0L Cannula 12/19 0004 89 Room Air 12/18 2245 95 Nasal 2.0L Cannula 12/18 2230 98.0 90 20 149/80 90 Room Air 12/18 2048 98.1 90 18 146/64 91 Room Air on exam; aox3, nad. cv; s1, s2, rrr resp; decreased bs b/l abd; soft, nt, bs+ ext; + chronic venous stasis changes. Laboratory Tests 12/19 12/18 0635 2352 Chemistry Sodium (137 - 145 mmol/L) 144 Potassium (3.5 - 5.1 mmol/L) 4.5 Chloride (98 - 107 mmol/L) 104 Carbon Dioxide (22 - 30 mmol/L) 32 H Anion Gap (5 - 16) 9 BUN (9 - 20 mg/dL) 18 Creatinine (0.7 - 1.2 mg/dL) 0.8 Estimated GFR (>60 ml/min) > 60 BUN/Creatinine Ratio (7 - 25 %) 22.5 Flr-F-Plaxdjhkuyy Pept (<125 pg/mL) 138 H Hematology CBC w Diff NO MAN DIFF REQ WBC (4.8 - 10.8 /CUMM) 9.9 RBC (4.70 - 6.10 /CUMM) 3.85 L Hgb (14.0 - 18.0 G/DL) 11.1 L Hct (42 - 52 %) 34.1 L MCV (80.0 - 94.0 FL) 88.8 MCH (27.0 - 31.0 PG) 28.9 MCHC (33.0 - 37.0 G/DL) 32.5 L RDW (11.5 - 14.5 %) 16.7 H Plt Count (130 - 400 /CUMM) 332 MPV (7.4 - 10.4 FL) 8.0 Gran % (42.2 - 75.2 %) 65.9 Lymphocytes % (20.5 - 51.1 %) 19.4 L Monocytes % (1.7 - 9.3 %) 11.5 H Eosinophils % (0 - 5 %) 2.9 Basophils % (0.0 - 2.0 %) 0.3 Absolute Granulocytes (1.4 - 6.5 /CUMM) 6.6 H Absolute Lymphocytes (1.2 - 3.4 /CUMM) 1.9 Absolute Monocytes (0.10 - 0.60 /CUMM) 1.1 H Absolute Eosinophils (0.0 - 0.7 /CUMM) 0.3 Absolute Basophils (0.0 - 0.2 /CUMM) 0 Urines Urine Color (YEL,AMB,STR) YEL Urine Clarity (CLEAR) CLEAR Urine pH (5.0 - 8.0) 6.0 Ur Specific [place] (1.001 - 1.035) 1.025 Urine Protein (NEG,<30 MG/DL) NEG Urine Ketones (NEG) NEG Urine Nitrite (NEG) NEG Urine Bilirubin (NEG) NEG Urine Urobilinogen (0.1 - 1.0 EU/dl) 0.2 Ur Leukocyte Esterase (NEG) NEG Ur Microscopic EXAM NOT REQUIRED Urine Hemoglobin (NEG) NEG Urine Glucose (N MG/DL) NEG 12/18 Chemistry Sodium (137 - 145 mmol/L) 144 Potassium (3.5 - 5.1 mmol/L) 5.0 Chloride (98 - 107 mmol/L) 104 Carbon Dioxide (22 - 30 mmol/L) 34 H Anion Gap (5 - 16) 7 BUN (9 - 20 mg/dL) 21 H Creatinine (0.7 - 1.2 mg/dL) 0.9 Estimated GFR (>60 ml/min) > 60 BUN/Creatinine Ratio (7 - 25 %) 23.3 Glucose (65 - 99 mg/dL) 134 H Calcium (8.4 - 10.2 mg/dL) 10.0 Total Bilirubin (0.2 - 1.3 mg/dL) 0.7 Direct Bilirubin (< 0.4 mg/dL) 0.2 AST (17 - 59 U/L) 22 ALT (21 - 72 U/L) 25 Alkaline Phosphatase (< 127 U/L) 66 Troponin I (<0.11 ng/ml) < 0.01 Total Protein (6.3 - 8.2 g/dL) 6.5 Albumin (3.5 - 5.0 g/dL) 3.4 L Amylase (30 - 110 U/L) 75 Lipase (23 - 300 U/L) 158 Vitamin B12 (239 - 931 pg/mL) > 1000 H 25-OH Vitamin D Total (30 - 100 ng/ml) 36.1 Coagulation D-Dimer High Sensitivty (0 - 243 ng/ml) 597 H Hematology CBC w Diff NO MAN DIFF REQ WBC (4.8 - 10.8 /CUMM) 10.7 RBC (4.70 - 6.10 /CUMM) 4.14 L Hgb (14.0 - 18.0 G/DL) 11.8 L Hct (42 - 52 %) 36.9 L MCV (80.0 - 94.0 FL) 89.3 MCH (27.0 - 31.0 PG) 28.6 MCHC (33.0 - 37.0 G/DL) 32.0 L RDW (11.5 - 14.5 %) 16.7 H Plt Count (130 - 400 /CUMM) 391 MPV (7.4 - 10.4 FL) 7.6 Gran % (42.2 - 75.2 %) 70.8 Lymphocytes % (20.5 - 51.1 %) 14.8 L Monocytes % (1.7 - 9.3 %) 11.7 H Eosinophils % (0 - 5 %) 2.3 Basophils % (0.0 - 2.0 %) 0.4 Absolute Granulocytes (1.4 - 6.5 /CUMM) 7.6 H Absolute Lymphocytes (1.2 - 3.4 /CUMM) 1.6 Absolute Monocytes (0.10 - 0.60 /CUMM) 1.3 H Absolute Eosinophils (0.0 - 0.7 /CUMM) 0.2 Absolute Basophils (0.0 - 0.2 /CUMM) 0 A/P; 87 y/o M with pmh sig for HTN, HLP, ?BPH, morbid obesity, PVD, bilateral knee replacement admitted with a mechanical fall and hypoxia. Continues to require oxygen. We'll try to taper. Patient will need outpatient pulmonology evaluation and likely sleep study for evaluation for obesity hypoventilation syndrome. Patient seen by physical therapy and they recommended rehabilitation. Continue current management and will likely need to go to rehabilitation when bed available. DVt px; Lovenox.
[2017-12-19 14:06] VITALS: BP 137/66
[2017-12-19 20:15] VITALS: BP 150/60
[2017-12-19 21:16] VITALS: BP 130/60
--- NOTE | 2017-12-20 06:55 | PN- Housestaff ---
Subjective Follow-up For: Hypoxemia Subjective: Patient seen and examined at bedside. Patient was lying in his bed comfortably. He is on 1 L of oxygen. Denies shortness of breath nausea, vomiting, chest pain. Review of Systems Constitutional: Reports: no symptoms, see HPI. Objective Last 24 Hrs of Vital Signs/I&O Vital Signs Date Time Temp Pulse Resp B/P B/P Pulse O2 O2 Flow FiO2 Mean Ox Delivery Rate 12/20 1228 98.1 91 20 154/62 12/20 0819 91 154/62 12/20 0810 92 Nasal 1.0L Cannula 12/20 0800 91 Nasal 1.5L Cannula 12/20 0700 98.1 91 20 154/62 91 12/20 0000 Nasal 1.5L Cannula 12/19 2116 98.2 80 130/60 92 Nasal 1.5L Cannula 12/19 2014 98.2 80 18 150/60 92 Nasal 1.5L Cannula 12/19 1600 94 Nasal 1.0L Cannula Intake & Output 12/20 1600 12/20 0800 12/20 0000 Intake Total 490 240 710 Output Total 300 300 350 Balance 190 -60 360 Intake, IV 10 10 Intake, Oral 480 240 700 Number 2 Bowel Movements Output, Urine 300 300 350 Patient 349 lb Weight Physical Exam General Appearance: Alert, Oriented X3, Cooperative Cardiovascular: Regular Rate, Normal S1, Normal S2 Lungs: Clear to Auscultation Abdomen: Soft, No Tenderness, No Hepatospenomegaly Neurological: Normal Speech, Normal Tone, Sensation Intact, Cranial Nerves 3-12 NL Current Medications: Current Medications Sig/Leeroy Start time Last Medication Dose Route Stop Time Status Admin Acetaminophen 650 MG Q6P PRN 12/19 0445 DCD 12/20 PO 1312 Amlodipine Besylate 5 MG DAILY 12/19 09 DCD 12/20 PO 0819 Atorvastatin Calcium 10 MG 1700 12/19 1700 DCD 12/19 PO 1617 Enoxaparin Sodium 40 MG DAILY 12/19 899 DCD 12/20 SC 0819 Nystatin 1 SERAFIN BID 12/19 899 DCD 12/20 TOP 0819 Polyethylene Glycol 17 GM DAILY PRN 12/19 0445 DCD PO Assessment/Plan Assessment: 87-year-old gentleman with past medical history of hypertension, hyperlipidemia, morbid obesity, peripheral vascular disease with bilateral knee replacement came with complaints of cough, unsteady gait. Assessment and plan 1. Hypoxemia secondary due to possible obesity hypoventilation syndrome 2. Unsteady gait. * Patient on 1.5 L of nasal oxygen will taper down slowly. * Continue his home medications * Patient working with physical therapy needs assist of 2. Physical therapy recommended short-term rehabilitation. * Patient advised about eating healthy and regular exercise. * DVT prophylaxis-Lovenox * Diet-heart healthy diet * Code-full code * Plan to discharge him to short-term rehabilitation today. Problem List: 1. Hypoxia 2. Sleep apnea Pain Ratin Pain Location: none Pain Goal: Remain pain free Pain Plan: tylenol Tomorrow's Labs & Rationales: none
[2017-12-20 07:00] VITALS: BP 154/62
--- NOTE | 2017-12-20 09:41 | Patient Discharge Instructions ---
Discharge Instructions General Discharge Information You were seen/treated for: fall and hypoxia Special Instructions: please follow up with PCP with in a week of discharge. Please take an appointment with artist agent for evaluation of sleep apnoea. Acute Coronary Syndrome Inclusion Criteria At DC or during hospital stay patient has or had the following: ACS DIAGNOSIS No Discharge Core Measures Meds if any: Prescribed or Continued at Discharge Meds if any: NOT Prescribed or Continued at Discharge Congestive Heart Failure Inclusion Criteria At DC or during hospital stay patient has or had the following: CHF DIAGNOSIS No Discharge Core Measures Meds if any: Prescribed or Continued at Discharge Meds if any: NOT Prescribed or Continued at Discharge Cerebrovascular accident Inclusion Criteria At DC or during hospital stay patient has or had the following: CVA/TIA Diagnosis No Discharge Core Measures Meds if any: Prescribed or Continued at Discharge Meds if any: NOT Prescribed or Continued at Discharge Venous thromboembolism Inclusion Criteria VTE Diagnosis No VTE Type NONE VTE Confirmed by (Test) NONE Discharge Core Measures - Per Current guidelines, there needs to be overlap - treatment for the first 5 days of Warfarin therapy. - If discharged on Warfarin prior to 5 days of - overlap therapy, the patient will need to be - assessed for post discharge needs including - *Post discharge parental anticoagulation - *Warfarin and/or parental anticoagulation education - *Follow up date to check INR post discharge At least 5 days overlap therapy as Inpatient No Meds if any: Prescribed or Continued at Discharge Note: Overlap Therapy is Warfarin and Anticoagulant Meds if any: NOT Prescribed or Continued at Discharge
--- NOTE | 2017-12-20 11:02 | Discharge Summary ---
Visit Information Visit Dates Admission Date: 12/19/17 Discharge Date: 12/20/2017 Hospital Course Course Attending Physician: Delisa Gonzalez MD Primary Care Physician: Steve Cox MD Hospital Course: Patient was brought in ER after mechanical fall. He states that in last 1 month he fell 3 times. ED course - Vitals: T-98.1, pulse 90, RR 18, blood pressure 146/64, [id number]% on room air, and then he desaturated to 89% on room air, started on 2 L nasal cannula saturating well at 97%. On exam: A O 3, cooperative, no acute distress, neck supple, JVD normal, no lymphadenopathy, mucosa moist, chronic venous stasis skin changes, no obvious skin rashes or inflammation CVS: S1-S2, RRR. RS: Clear to auscultate bilaterally. Abdomen: Obese, chronic skin changes, fungal infection and panniculitis in bilateral inguinal folds with superficial multiple small skin breakdowns. CT abdomen and pelvis, Chest without contrast: 1. No evidence for acute traumatic injury to the thorax, abdomen or pelvis. 2. No evidence for acute abdominal or pelvic inflammatory or infectious processes. 3. Sigmoid diverticulosis without evidence of diverticulitis. 4. Layering high attenuation within the gallbladder lumen, either abrasives sales representative of high density bile or numerous calculi. No CT evidence for cholecystitis. 5. 7 mm right upper lobe nodular density. CT head and cervical spine without IV contrast: 1. Nonvisualization of the posterior fossa and temporal lobes secondary to significant patient motion. Acute findings in this location cannot be excluded. 2. Within the visualized cranium, no acute intracranial hemorrhage. 3. No acute fracture of the cervical spine. 4. Moderately severe degenerative changes involving the C5-C7 levels. The adjacent and associated spondylolisthesis most likely relates to degenerative change as opposed to acute subluxation. CTA chest: No acute abnormality the chest. No evidence of pulmonary embolism. Recurrent fall possibly multifactorial -secondary to obesity, chronic arthritis, CO2 retention/obstructive sleep apnea - We did CT scan head/chest/pelvis which did not show any acute fracture or hemorrhage. We treated conservatively. We discharged him with advice to have all fall precautions and follow-up with PCP within a week of discharge. Hypoxia, with retention of bicarbonate on blood workup possibly secondary to obstructive sleep apnea need outpatient evaluation patient had an episode of hypoxia- Which was treated with supplemental oxygen by nasal cannula. We discharged him on 1 L of nasal cannula. At the time of discharge he was saturating 92% on 1 L. We referred him to motor hotel manager for outpatient evaluation for sleep apnea. 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 Discharge Disposition: SNF Discharge Instructions General Discharge Information Code Status: Full Code Patient's Diet: Weight loss diet, heart healthy diet, Patient's Activity: As tolerated with on fall precautions Follow-Up Instructions/Appts: Please follow-up with PCP within a week of discharge Please follow-up with motor hotel manager/Dr. Mendez, for further evaluation and management of sleep apnea including sleep study. Please take the medication as advised He have 7 mm nodular density within the right upper lobe on image [id number]. Please follow up with PCP/Pulmonology Medications at Discharge Discharge Medications: Stop taking the following medications: Propranolol HCl (Propranolol HCl ER) (Unknown Strength) CAP.SA.24H Qty = 30 Continue taking these medications: Finasteride (Finasteride) 5 MG TABLET 1 Tablet ORAL DAILY Qty = 90 Comments: PER PT Atorvastatin Calcium (Atorvastatin Calcium) 10 MG TABLET 1 Tablet ORAL DAILY Qty = 90 Comments: PER PT Tamsulosin HCl (Tamsulosin HCl) 0.4 MG CAP.ER.24H 1 Capsule ORAL DAILY Qty = 90 Comments: PER PT Primidone (Primidone) 50 MG TABLET 0.5 Tablet ORAL DAILY Qty = 60 Comments: PER PT Amlodipine Besylate (Amlodipine Besylate) 5 MG TABLET 1 Tablet ORAL DAILY Qty = 90 Comments: PER PT Olopatadine HCl (Pazeo) 2.5 ML DROPS 1 DROP OPHTHALMIC DAILY Qty = 3 Comments: PER PT Multivitamin (Daily Value) 1 EACH TABLET 1 Tablet ORAL DAILY Vitamin B Complex (Vitamin B Complex) 1 EACH CAPSULE 1 Capsule ORAL DAILY Comments: PER PT Ubidecarenone (Co Q-10) 50 MG CAPSULE 2 Capsule ORAL DAILY Comments: PER PT Ascorbate Calcium (Vitamin C) 500 MG TABLET 1 Tablet ORAL DAILY Comments: PER PT C/Sourcherry/Celery/Grape Seed (Tart [place] Capsule) 1 EACH CAPSULE 1 Capsule ORAL DAILY Comments: PER PT Biotin (Biotin) 5 MG CAPSULE 1 Tablet ORAL DAILY Comments: PER PT Cyanocobalamin (Vitamin B-12) 1,000 MCG TABLET 1 ORAL DAILY Comments: PER PT Potassium Gluconate (Potassium Gluconate) 500 MG (83 MG) TABLET 1 Tablet ORAL DAILY Magnesium Oxide (Magnesium) 400 MG CAPSULE 1 Tablet ORAL DAILY Comments: PER PT Copies To: Kenny LAWSON,Steve Jimenez Attending MD Review Statement Documenting Attending: Carlos LAWSON,Delisa
--- NOTE | 2017-12-20 12:25 | PN- Att Addend ---
Attending Addendum Attending Brief Note Patient seen and examined, overall doing well. Oxygen requirement has improved although still requiring 1 L of oxygen. Otherwise denies any complaints. Patient is awake, alert, oriented 3. He has a bed available at rehabilitation and he is medically stable for discharge to rehabilitation today. He will be referred to a glove printer as an outpatient to assess for ISIDRO/OHS. He should also f/u with his PCP.
[2017-12-20 12:28] VITALS: BP 154/62
--- NOTE | 2017-12-21 14:28 | ECHOCARDIOGRAM REPORT ---
DASHA DON Age: 87 : 1930 Gender: M Exam Date: 12/20/2017 11:08 Exam Location: [address] [place] [address] Ht (in): 67 Wt (lb): 339 BSA: 2.79 BP: 142 / 52 Ordering Physician: Serena Barrow MD Referring Physician: Serena Barrow MD Technologist: Irwin Eason ELVIRA Room Number: Indications: Shortness of breath Rhythm: Sinus Technical Quality: Technically difficult study FINDINGS Left Ventricle Normal size left ventricle. Normal left ventricular wall thickness. Normal left ventricular ejection fraction visually estimated at > 60%. No obvious regional wall motion abnormalities. Right Ventricle Normal right ventricular size and function. Right Atrium Normal right atrial size. Left Atrium Mild left atrial dilatation. Mitral Valve Mild mitral annular calcification. Mild mitral regurgitation. Aortic Valve Diffuse thickening (sclerosis) of the aortic valve cusps without reduced excursion. No aortic stenosis. No aortic regurgitation. Tricuspid Valve Tricuspid valve not well visualized, grossly normal. Trace tricuspid regurgitation. Right ventricular systolic pressure estimated to be elevated at 41 mmHg. Pulmonic Valve Pulmonic valve not well visualized, grossly normal. Pericardium No pericardial effusion. Great Vessels Normal size aortic root. CONCLUSIONS Normal size left ventricle. Normal left ventricular ejection fraction visually estimated at > 60%. Mild mitral regurgitation. Mild mitral regurgitation. Right ventricular systolic pressure estimated to be elevated at 41 mmHg. Carter Johns M.D. (Electronically Signed) Final Date: 21 Dec 2017 14:28 MEASUREMENTS (Male / Female) Normal Values 2D ECHO LV Diastolic Diameter PLAX 4.7 cm 4.2 - 5.9 / 3.9 - 5.3 cm LV Systolic Diameter PLAX 2.5 cm 2.1 - 4.0 cm LV Fractional Shortening PLAX 46.8 % 25 - 46 % LV Ejection Fraction 2D Teich 78.2 % IVS Diastolic Thickness 1.1 cm LVPW Diastolic Thickness 1.1 cm LV Relative Wall Thickness 0.5 RV Internal Dim ED PLAX 3.9 cm 1.9 - 3.8 cm LVOT Diameter 2.0 cm Aortic Root Diameter 3.0 cm LA Systolic Diameter LX 4.2 cm 3.0 - 4.0 / 2.7 - 3.8 cm Ascending Aorta Diameter 3.1 cm DOPPLER AV Peak Velocity 136.0 cm/s AV Peak Gradient 7.4 mmHg AV Mean Velocity 106.0 cm/s AV Mean Gradient 5.0 mmHg AV Velocity Time Integral 31.3 cm LVOT Peak Velocity 83.5 cm/s LVOT Peak Gradient 2.8 mmHg LVOT Mean Velocity 57.9 cm/s LVOT Mean Gradient 2.0 mmHg LVOT Velocity Time Integral 16.7 cm LVOT Stroke Volume 52.5 cm AV Area Cont Eq vti 1.7 cm AV Area Cont Eq pk 1.9 cm MV Peak Velocity 130.0 cm/s MV Peak Gradient 6.8 mmHg MV Mean Velocity 67.8 cm/s MV Mean Gradient 2.0 mmHg Mitral E Point Velocity 106.0 cm/s Mitral A Point Velocity 58.2 cm/s Mitral E to A Ratio 1.8 MV PHT Velocity 134.0 cm/s MV Deceleration Rusk 692.0 cm/s MV Pressure Half Time 58.1 ms MV Area PHT 3.8 cm MV Deceleration Time 250.0 ms TR Peak Velocity 276.0 cm/s TR Peak Gradient 30.5 mmHg Right Atrial Pressure 10.0 mmHg Pulmonary Artery Systolic Pressu 40.5 mmHg Right Ventricular Systolic Press 40.5 mmHg PV Peak Velocity 105.0 cm/s PV Peak Gradient 4.4 mmHg PV Mean Velocity 71.2 cm/s PV Mean Gradient 2.0 mmHg PV Velocity Time Integral 22.0 cm LV E' Lateral Velocity 10.4 cm/s Mitral E to LV E' Lateral Ratio 10.2 LV E' Septal Velocity 11.2 cm/s Mitral E to LV E' Septal Ratio 9.5
== END 2017-12-20 13:41 | DRG 155 ==
LOC: ERH 20:38 → 2NB 12-19 02:35 → ERHI 12-19 02:35 → ENRESERV 12-19 03:09 → 2NB 12-19 03:55 → ENPENDDIS 12-20 12:10 → 2NB 12-20 13:41
PROVIDERS: Pediatrics; Student in an Organized Health Care Education/Training Program
DX: G47.33 Obstructive sleep apnea (adult) (pediatric) (principal); E87.2 Acidosis; E66.01 Morbid (severe) obesity due to excess calories; Z68.43 Body mass index [BMI] 50.0-59.9, adult; I73.9 Peripheral vascular disease, unspecified; R09.02 Hypoxemia; I10 Essential (primary) hypertension; E78.5 Hyperlipidemia, unspecified; I87.8 Other specified disorders of veins; Y92.009 Unspecified place in unspecified non-institutional (private) residence as the place of occurrence of the external cause; N40.0 Benign prostatic hyperplasia without lower urinary tract symptoms; I89.0 Lymphedema, not elsewhere classified; Z88.8 Allergy status to other drugs, medicaments and biological substances; Z96.653 Presence of artificial knee joint, bilateral; W18.30XA Fall on same level, unspecified, initial encounter; Z91.81 History of falling; Y92.002 Bathroom of unspecified non-institutional (private) residence as the place of occurrence of the external cause; K57.30 Diverticulosis of large intestine without perforation or abscess without bleeding
CPT/HCPCS: 2NBP; 36592; 74176; 81003; 82436; 93005; 93010; 97116-GO; 97161-GP; 97530-GO; C8929; J1650; Q9957